=== PATIENT | male | born 1985 | race Caucasian/White ===

== ENCOUNTER 2020-04-14 16:59 | Emergency (ER) | payer OTHER, SELFPAY ==
[2020-04-14 17:15] VITALS: BP 157/84; PULSE 70; RESP 20; TEMP 36.7; O2SAT 98
--- NOTE | 2020-04-14 17:19 | ED.WOUNDLAC ---
HPI - Wound/Laceration General Chief Complaint: Wound/Laceration Stated Complaint: Cut on L leg Time Seen by Provider: 04/14/20 17:19 Source: patient and RN notes reviewed Mode of arrival: ambulatory Limitations: no limitations History of Present Illness HPI narrative: A piece of sheet metal fell on to his left leg which ran down his leg causing a long wound only the center part has a deep laceration. Onset (ago): hour(s) (3) Extremity Location: Left: lower leg Place: home Patient tetanus UTD: Yes Context: accidental Associated symptoms: none Treatments prior to arrival: bandage Related Data Home Medications Medication Instructions Recorded Confirmed No Home Medications 04/14/20 04/14/20 Allergies Allergy/AdvReac Type Severity Reaction Status Date / Time No Known Allergies Allergy Verified 04/14/20 17:43 Review of Systems Review of Systems: All systems reviewed & are unremarkable except as noted in HPI and below PMFSH Surgical History Surgical History (Updated 04/14/20 @ 17:49 by Juvenal Ovalle MD) H/O wrist surgery Social History Social History (Updated 04/14/20 @ 17:50 by Juvenal Ovalle MD) Smoking status: Current some day smoker Alcohol intake: current Alcohol use details: occasional Substance use: never Gender identity (if verbalized by the patient): Male Exam Const: General: healthy appearing, no acute distress and alert Nutritional Appearance: well nourished Orientation/consciousness: patient oriented x3 HENMT: Head: normal to inspection Ears: external ears normal Eyes: Conjunctivae: conjunctivae normal Pupils: Equal, round and reactive pupils present EOM: EOMs intact bilaterally Neck: Neck: normal visual inspection Resp: Effort & Inspection: normal respiratory effort Auscultation: clear to auscultation bilaterally Cardio: Rate: regular rate Rhythm: regular rhythm GI: GI Palp: Yes Soft to palpation Auscultation: normal bowel sounds Back/Spine/Pelvis: Cervical Spine: cervical ROM normal Thoracic/Lumbar Spine: thoraco-lumbar ROM normal Skin: General skin exam: normal color Rashes: no rashes Wounds: wounds noted laceration left lower leg size (3 cm) and open Neuro: General: patient oriented x3, moves all extremities and no meningeal signs Extrem: General: normal to inspection and no clubbing, cyanosis or edema Psych: Appearance: grossly normal and well kempt Mental Status: mental status grossly normal Affect: normal affect Attitude: cooperative Thought content: Yes Normal thought content present Course Vital Signs Vital signs: Vital Signs Temperature 36.7 C 04/14/20 17:15 Pulse Rate 70 04/14/20 17:15 Respiratory Rate 20 04/14/20 17:15 Blood Pressure 157/84 H 04/14/20 17:15 Pulse Oximetry 98 04/14/20 17:15 Temperature 36.7 C 04/14/20 17:15 Pulse Rate 70 04/14/20 17:15 Respiratory Rate 20 04/14/20 17:15 Blood Pressure 157/84 H 04/14/20 17:15 Pulse Oximetry 98 04/14/20 17:15 Procedures Laceration Laceration 1: Date: 04/14/20 Time: 17:35 Site: lower extremity Side (If applicable): left Size (cm): 3 Description: linear and clean Depth: simple, single layer Local Anesthetic: lidocaine 1% and with epi Amount of anesthesia used (mL): 4 Pre-repair: wound explored ====== Skin Level ====== Skin layer closed with: nylon Size (cm): 4-0 Number of sutures: 8 Technique: running ====== Subcutaneous Layer ====== ====== Muscle Layer ====== ====== Tendon Layer ====== Discharge Plan Discharge Clinical Impression: Laceration Patient Disposition: Home, Self-Care Condition: Improved Instructions: Care For Your Stitches (ED), Laceration (ED) Additional Instructions: do not get wet for 36 hours. Sutures out in 10 days. Prescriptions: No Action No Home Medications RF: 0 Follow
[2020-04-14] MEDS: NEOMYCIN/POLYMYXIN/BACITRACIN OINTMENT PACKET 3 PACKET (17:50)
== END 2020-04-14 18:00 | disposition home or self-care (01) ==
PROVIDERS: Emergency Provider Emergency Medicine; PCP Internal Medicine
DX: S81.812A Laceration without foreign body, left lower leg, initial encounter (principal); W45.8XXA Other foreign body or object entering through skin, initial encounter
CPT/HCPCS: 12002; 99282; 99283